=== PATIENT | male | born 1995 | race Caucasian/White ===

== ENCOUNTER 2025-02-10 14:55 | Emergency (ER) | payer OTHER, SELFPAY ==
[2025-02-10 15:08] VITALS: BP 136/73; PULSE 54; RESP 17; TEMP 37; O2SAT 100; BMI 21.9
--- NOTE | 2025-02-10 15:49 | W.ED.WOUNDLC ---
HPI - Wound/Laceration General: Chief Complaint: Wound/Laceration Stated Complaint: L pinky finger lac Time Seen by Provider: 02/10/25 15:41 History of Present Illness: 29-year-old male was processing a deer when the knife slipped and he cut the dorsum of his proximal interphalangeal joint of his left fifth finger no other injury he thinks his last tetanus shot was about 5 years ago but he is not entirely sure. Related Data Previous Rx's ?Medication ?Instructions ?Recorded cephalexin 500 mg capsule 500 mg PO Q8H #15 caps 02/10/25 Allergies Allergy/AdvReac Type Severity Reaction Status Date / Time No Known Allergies Allergy Verified 02/10/25 15:14 Physical Exam Extremity: OTHER: 2 cm laceration just proximal to the proximal interphalangeal joint of the dorsum of the left fifth finger. No tendons or joint visualized. Patient able to flex and extend against resistance without difficulty Procedures Laceration Laceration 1: Site: hand Side (If applicable): left Size (cm): 2 Description: linear Depth: simple, single layer Pre-repair: irrigated extensively and deep structures intact Size (cm): 4-0 Number of sutures: 1 Technique: running (Locking) Nerve Block Nerve Block 1: Time out performed: Yes Local Anesthetic: lidocaine 1% Amount of anesthesia used (mL): 3 Side: left Nerve Blocks: digital (Left fifth digit) Procedure Successful: Yes Patient Tolerated Procedure: well Complications: none Course Vital Signs: Vital signs: Vital Signs Temperature 98.6 F 02/10/25 15:08 Pulse Rate 72 02/10/25 15:50 Respiratory Rate 17 02/10/25 15:08 Blood Pressure 127/66 02/10/25 15:50 Pulse Oximetry 99 02/10/25 15:50 Oxygen Delivery Me thod Room Air 02/10/25 15:50 MDM - Wound/Laceration Medical Decision Making Laceration repaired with a running locking suture wound care instructions given apply [id number] topical antibiotic ointment to the wound until healed and follow-up with primary care to remove sutures in 7 to 10 days Medical Records Laceration repaired with a running locking suture wound care instructions given apply [id number] topical antibiotic ointment to the wound until healed and follow-up with primary care to remove sutures in 7 to 10 days No radiology studies performed this visit Discharge Plan Discharge Patient Disposition: Home Clinical Impression: Laceration Condition: Stable Prescriptions: New cephalexin 500 mg capsule 500 mg PO Q8H Qty: 15 0RF Discharge Orders: Discharge ED (Routine); Ordered 02/10/25 Ordered By: Homar Mills Discharge Diet: Usual diet Discharge Activity: Resume usual activity Patient Instructions: Opioid Safety, Pain Management, Patient Portal & Carol Instructions Activity Restrictions/Additional Instructions: [facility]. It is very important that you follow up as instructed or that you return to the Emergency Department should you have concerns or if your condition changes or worsens in any way. Emergency department visits are focused on emergent conditions, in some cases you may require further evaluation on an outpatient basis. You are seen in the emergency room after sustaining a laceration to your left fifth finger. Laceration was sutured. You should apply topical antibiotic ointment to the wound until the sutures are removed. Sutures are to be removed in 10 to 14 days. You are given prophylactic antibiotics for 5 days 1 pill 3 times a day return if there is any signs of infection. (Please note that included in your discharge packet is information concerning opioid safety and pain management. This information is given to all patients were discharged from the ER regardless of their discharge diagnosis or the medicines they usually take or are prescribed.) Print Language: B[place] Coding Level of Care Code ED [employer] Supervisor for Lucila Morley
[2025-02-10 15:50] VITALS: BP 127/66; PULSE 72; O2SAT 99
[2025-02-10] MEDS: tetanus-dipt-pertussis 0.5 mL SDV IM (15:52)
[2025-02-10 16:34] VITALS: BP 122/80; PULSE 61; O2SAT 100
== END 2025-02-10 16:36 | disposition home or self-care (01) ==
PROVIDERS: Emergency Provider Family Medicine
DX: S61.217A Laceration without foreign body of left little finger without damage to nail, initial encounter (principal); W26.0XXA Contact with knife, initial encounter
CPT/HCPCS: 12001; 90471; 90715; 99283; J9999